=== PATIENT | female | born 1990 | race Caucasian/White ===

== ENCOUNTER 2023-02-25 12:02 | Emergency (ER) | payer OTHER ==
[2023-02-25 12:22] VITALS: BP 98/51; PULSE 60; RESP 18; TEMP 98.4; BMI 29.0
[2023-02-25] MEDS ORDERED: SODIUM CHLORIDE 0.9% 500 ML INFUS.BAG IV ONE (13:19)
[2023-02-25 13:45] LABS: EPI CELLS >36 /uL (0-25.1); HCG,QUALITATIVE URINE Negative; HYALINE CASTS 2 /uL (0-3.1); PH,URINE 7.5 (5.0-8.0); URINE APPEARANCE TURBID; URINE BACTERIA 374 /uL (0-1359); URINE BILIRUBIN NEGATIVE (NEGATIVE); URINE COLOR YELLOW; URINE GLUCOSE (UA) NEGATIVE (NEGATIVE); URINE KETONE NEGATIVE (NEGATIVE); URINE LEUK ESTERASE TRACE (NEGATIVE); URINE NITRITE NEGATIVE (NEGATIVE); URINE PROTEIN NEGATIVE (NEGATIVE); URINE RBC 10 /uL (0-23.9); URINE UROBILINOGEN 0.2 mg/dL (0.2-1.0); URINE WBC 36 /uL (0-25.8)
[2023-02-25 14:17] LABS: BASO % 0.3 % (0-2.0); EOS % 2.3 % (0-4.5); HEMATOCRIT 34.7 % (32.4-45.2); HEMOGLOBIN 11.4 GM/dL (10.7-15.3); LYMPH % 24.3 % (8-40); MCH 30.1 pg (25.7-33.7); MCHC 32.8 g/dl (32.0-36.0); MEAN CELL VOLUME 91.6 fl (80-96); MEAN PLT VOLUME 7.8 fl (7.5-11.1); MONO % 7.9 % (3.8-10.2); NEUT % 65.2 % (42.8-82.8); PLATELET COUNT 333 10^3/uL (134-434); RBC 3.79 M/mm3 (3.60-5.2); RDW 12.7 % (11.6-15.6)
[2023-02-25 14:40] LABS: POTASSIUM 4.6 mmol/L (3.5-5.1)
[2023-02-25 14:48] LABS: ALBUMIN 3.4 g/dl (3.4-5.0); BLOOD UREA NITROGEN 8.8 mg/dL (7-18)
[2023-02-25 14:50] LABS: CREATININE 0.6 mg/dL (0.55-1.3)
[2023-02-25 14:52] LABS: TOT PROT 6.9 g/dl (6.4-8.2)
[2023-02-25 14:53] LABS: BILIRUBIN,TOTAL 0.3 mg/dL (0.2-1)
== END 2023-02-25 16:19 | disposition home or self-care (01) ==
LOC: JER 12:02
DX: R09.81 Nasal congestion (principal); R05.9 Cough, unspecified; R42 Dizziness and giddiness
CPT/HCPCS: 36415; 80053; 81003; 84703; 85025; 87086; 93005; 93010; 99284-25